=== PATIENT | female | born 1970 | race Caucasian/White ===

== ENCOUNTER 2024-10-19 17:39 | Emergency (ER) | payer BC ==
[2024-10-19] MEDS ORDERED: Acetaminophen 500 MG TAB ONE (19:30)
== END 2024-10-19 19:50 | disposition home or self-care (01) ==
LOC: CSHERS 17:39
DX: S89.92XA Unspecified injury of left lower leg, initial encounter (principal); M19.90 Unspecified osteoarthritis, unspecified site; X50.0XXA Overexertion from strenuous movement or load, initial encounter; Y93.01 Activity, walking, marching and hiking; Z55.6 Problems related to health literacy
CPT/HCPCS: 99283

== ENCOUNTER 2024-11-20 15:17 | Outpatient (CLI) | payer BC | END 2024-11-20 15:18 | disposition home or self-care (01) | LOC: CSHMAMMO 15:17 | PROVIDERS: ATTEND Family Medicine | DX: Z12.31 Encounter for screening mammogram for malignant neoplasm of breast (principal); N64.89 Other specified disorders of breast | CPT/HCPCS: 77063; 77067 ==